=== PATIENT | male | born 1995 | race Caucasian/White ===

== ENCOUNTER 2018-04-13 23:41 | Emergency (ER) | payer SELFPAY ==
--- NOTE | 2018-04-14 00:09 | ED Physician Chart ---
ED Chief Complaint/HPI - Patient Information Date Seen:: 04/14/18 Time Seen:: 00:03 Chief Complaint:: Cough History of Present Illness:: 22 yo male had cough productive of yellow sputum, congestion, chills and sore throat for 2 days. Patient developed shortness of breath today. Allergies:: Allergies Allergy/AdvReac Type Severity Reaction Status Date / Time animal dander Allergy Verified 09/16/16 08:29 grass pollen Allergy Verified 09/16/16 08:29 iodine Allergy Verified 09/16/16 08:28 shellfish derived Allergy Verified 09/16/16 08:28 DUST Allergy Uncoded 09/16/16 08:29 Vitals:: Vital Signs - 8 hr 04/13/18 23:45 Temp 97.9 F HR 92 RR 20 BP 140/71 O2 Sat % 98 ED Review of Systems - Review of Systems General/Constitutional: No fever, Chills Skin: No rash Head: No headache Eyes: No pain ENT: Earache Neck: No neck pain Cardio Vascular: No chest pain Pulmonary: SOB GI: No nausea, No vomiting Musculoskeletal: No bone or joint pain Neurological: No focal symptoms ED Past Medical History - Past Medical History Past Medical History: Asthma/COPD Social History: Non Smoker, Alcohol, No Drug Use Surgical History: None Family Medical History - Family Member Mother History Unknown: Yes Ethnicity: Living Status: Still Living Hx Family Cancer: No Hx Family Coronary Artery Disease: No Hx Family Congestive Heart Failure: No Hx Family Hypertension: Yes Hx Family Stroke: No Hx Family Diabetes: Yes Hx Family Seizures: No Hx Family Dementia: No Hx Family AIDS: No Hx Family HIV: No Hx Family COPD: No Hx Family Hepatitis: No Hx Family Psychiatric Problems: No Hx Family Tuberculosis: No ED Physical Exam - Physical Examination General/Constitutional: Awake, Alert Head: Atraumatic Eyes: PERRL Skin: No skin lesions ENMT: Nasal exam nl Neck: No nuchal rigidity Other Respiratory comments:: Ronchi b/l lungs Cardio Vascular: RRR, No murmur, gallop, rubs, NL S1 S2 GI: No tenderness/rebounding/guarding Extremities: normal strength in all extremities Neuro/Psych: No focal deficits ED Assessment - Assessment Assessment/Comments:: CBC, CMP EKG DuoNeb Robitussion DM PO Azithromycin 500mg PO D/c home Azithromycin 250mg PO qd x 4 days Robitussion prn F/u PCP or return to ER if symptoms worse ED Septic Shock - <6hrs of presentation: Vital Signs: Vital Signs - 8 hr 04/13/18 23:45 Temp 97.9 F HR 92 RR 20 BP 140/71 O2 Sat % 98
[2018-04-14] MEDS ORDERED: Albuterol/Ipratropium Neb 3 ML AERS HHN ONE ×2 (00:10→00:15)
[2018-04-14] MEDS ORDERED: Guaifenesin DM 10 ML UDC PO ONE (00:11)
[2018-04-14] MEDS ORDERED: Guaifenesin DM 10 ML UDC ONE (00:12)
[2018-04-14 00:28] LABS: % BASOPHILS 0.5 % (0.0-2.0); % EOSINOPHILS 4.9 % (0.0-5.0); % LYMPHOCYTES 13.4 % (20.0-50.0); % MONOCYTES 8.4 % (2.0-10.0); % NEUTROPHILS 72.8 % (40.0-80.0); BASOPHILE ABSOLUTE 0.1 Th/cumm (0-0.2); EOSINOPHILE ABSOLUTE 0.6 Th/cmm (0.1-0.4); HEMATOCRIT 47.9 % (41.0-60); HEMOGLOBIN 15.8 gm/dL (12-16); LYMPHOCYTE ABSOLUTE 1.6 Th/cmm (1.5-3.0); MEAN CELL VOLUME 86.6 fl (80-99); MEAN CORPUSCULAR HEMOGLOBIN 28.5 pg (26.0-30.0); MEAN CORPUSCULAR HGB CONC 32.9 pg (28.0-36.0); MEAN PLATELET VOLUME 9.9 fl; NEUTROPHILE ABSOLUTE 8.9 Th/cmm (1.8-8.0); PLATELET COUNT 183 Th/cmm (150-400); RED BLOOD COUNT 5.53 Mil/cmm (4.30-5.70); RED CELL DISTRIBUTION WIDTH 14.4 % (11.5-20.0); WHITE BLOOD COUNT 12.2 Th/cmm (4.8-10.8)
[2018-04-14 00:43] LABS: ALB/GLOB RATIO 1.4 (1.0-1.8); ALBUMIN 4.3 gm/dL (4.2-5.5); ALKALINE PHOSPHATASE 85 U/L (34-104); ANION GAP 8.8 (7.0-16.0); BILIRUBIN,TOTAL 0.4 mg/dL (0.3-1.0); BUN - UREA NITROGEN 9 mg/dL (7-25); CALCIUM SERUM 9.8 mg/dL (8.6-10.3); CARBON DIOXIDE 30.2 mEq/L (21.0-31.0); CHLORIDE 102 mEq/L (98-107); CREATININE - SERUM 0.9 mg/dL (0.7-1.3); GFR AFRICAN-AMERICAN > 60.0 ml/min (>90); GFR NON AFRICAN-AMERICAN > 60.0 ml/min; GLUCOSE 119 mg/dL (70-105); SGOT 20 U/L (13-39); SGPT/ALT 39 U/L (7-52); SODIUM SERUM 137 mEq/L (136-145); TOTAL PROTEIN,SERUM 7.3 gm/dL (6.0-8.3)
--- NOTE | 2018-04-14 09:05 | Diagnostic Imaging Report ---
Portable chest x-ray Time: : 0110 hours History: Cough Allowing for portable technique the heart size is normal. No focal pulmonary parenchymal processes. No hilar or mediastinal abnormalities. Impression: No acute abnormalities.
== END 2018-04-14 01:30 | disposition home or self-care (01) ==
LOC: ER 23:41
DX: J02.9 Acute pharyngitis, unspecified (principal); R06.02 Shortness of breath; H92.09 Otalgia, unspecified ear; J45.909 Unspecified asthma, uncomplicated; Z91.013 Allergy to seafood; Z91.041 Radiographic dye allergy status; Z91.048 Other nonmedicinal substance allergy status
CPT/HCPCS: 36415-UA; 71045-TC; 80053-TC; 85025-TC; 93005; 94640